=== PATIENT | female | born 1955 | race Caucasian/White ===

== ENCOUNTER 2017-04-23 05:21 | Inpatient (IN) | payer BC ==
[2017-03-24 13:16] VITALS: BMI 42.0
--- NOTE | 2017-03-24 13:43 | PAT Medication Instructions ---
Service Date Mar 24, 2017. Current Home Medication List Acetaminophen (Tylenol), 1,000 MG PO PRN B-Complex Vitamins (Vitamin B Complex), 1 TAB PO QAM Biotin (Biotin 5000), 1 CAP PO QAM Escitalopram Oxalate (Lexapro), 20 MG PO HS Ibuprofen (Advil), 400 MG PO PRN Loratadine (Claritin), 10 MG PO HS Multivitamins/Minerals (Mvi With Minerals), 1 TAB PO QAM Medication Instructions For Your Scheduled Surgery - Check with surgeon for instructions: Ibuprofen (Advil), 400 MG PO PRN - Hold the following medications the morning of surgery: B-Complex Vitamins (Vitamin B Complex), 1 TAB PO QAM Biotin (Biotin 5000), 1 CAP PO QAM Multivitamins/Minerals (Mvi With Minerals), 1 TAB PO QAM - Take the following medications the morning of surgery with a sip of water: Acetaminophen (Tylenol), 1,000 MG PO PRN (if needed) - Take the following medications as scheduled the night before surgery: Escitalopram Oxalate (Lexapro), 20 MG PO HS Loratadine (Claritin), 10 MG PO HS Acetaminophen (Tylenol), 1,000 MG PO PRN (if needed) If you have any questions please call us at [phone] or [phone] or [phone]
--- NOTE | 2017-03-24 14:24 | DIAGNOSTIC IMAGING REPORT ---
TWO VIEW CHEST CLINICAL HISTORY: Preoperative examination.. FINDINGS: PA and lateral chest radiographs are compared to study dated 02/15/2016 and correlated with chest CT dated 11/20/2016. The heart is enlarged and there is atherosclerotic calcification of the thoracic aorta. The pulmonary vasculature is noncongested. Chronic interstitial thickening is similar to previous. The lungs and pleural spaces are clear. There is no pneumothorax. The skeletal structures are osteopenic. The bony thorax appears intact. Degenerative change is noted in the thoracic spine. Mild compression deformities are suggested at the thoracolumbar junction. Cholecystectomy clips and suture material are noted in the upper abdomen. IMPRESSION: Cardiomegaly with no active disease in the chest. Electronically signed by: Lul Sams M.D. 03/24/2017 2:23 PM Dictated Date/Time: 03/24/2017 2:22 PM
[2017-03-24 14:50] LABS: BASO % 0.8 %; BASO ABS # 0.04 K/uL (0-0.2); COMPLETE YES; EOS % 9.5 %; HEMATOCRIT 38.8 % (37-47); LYMPH % 27.1 %; LYMPH ABS # 1.34 K/uL (1.2-3.4); MEAN CELL VOLUME 87.8 fL (80-100); MEAN CORPUSCULAR HEMOGLOBIN 26.2 pg (25-34); MEAN CORPUSCULAR HGB CONC 29.9 g/dl (32-36); MEAN PLATELET VOLUME 10.4 fL (7.4-10.4); MONO % 7.7 %; NEUT % 54.9 %; PLATELET COUNT 316 K/uL (130-400); RED BLOOD COUNT 4.42 M/uL (4.2-5.4); WHITE BLOOD COUNT 4.95 K/uL (4.8-10.8)
[2017-03-24 14:52] LABS: URINE APPEARANCE CLEAR (CLEAR); URINE BILIRUBIN NEG (NEG); URINE COLOR YELLOW; URINE NITRITE NEG (NEG); URINE SPECIFIC GRAVITY 1.018 (1.000-1.030); UROBILINOGEN NEG (NEG); ZZUR CULT IF INDIC CLEAN CATCH NO
[2017-03-24 14:57] LABS: BUN/CREATININE RATIO 15.3 (10-20); CALCIUM 9.1 mg/dl (8.5-10.1); CREATININE 0.66 mg/dl (0.60-1.20); POTASSIUM 3.8 mmol/L (3.5-5.1)
[2017-03-24 14:59] LABS: MANUAL MICROSCOPIC REQUIRED? NO; REVIEW REQ? NO
[2017-03-24 15:01] LABS: PARTIAL THROMBOPLASTIN RATIO 1.2; PROTHROMBIN TIME (PATIENT) 10.6 SECONDS (9.0-12.0)
[2017-03-25 06:42] LABS: ESTIMATED AVERAGE GLUCOSE 103 mg/dl; HA1C FLAG Normal (Normal)
--- NOTE | 2017-04-22 18:02 | HISTORY & PHYSICAL EXAMINATION ---
DATE OF ADMISSION: 04/23/2017 CHIEF COMPLAINT: Chronic right knee pain. HISTORY OF PRESENT ILLNESS: This is a 61-year-old female patient of Dr. Rodriguez'hemalatha complaining of chronic right knee pain, longstanding, now progressively getting worse. The patient has been diagnosed with end-stage osteoarthritis per clinical and radiographic exams. The patient has failed conservative treatment including Tylenol, anti-inflammatories and the use of a cane. She has increased pain with weightbearing activities and her pain does interfere with her activities of daily living. PAST MEDICAL HISTORY: Anxiety, obesity, dental issues. SOCIAL HISTORY: Nonsmoker, nondrinker. PAST SURGICAL HISTORY: She has had left knee surgery, gastric bypass, hernia, gallbladder, tonsillectomy. FAMILY HISTORY: Noncontributory. REVIEW OF SYSTEMS: The patient complains of chronic right knee pain, otherwise denies any shortness of breath, chest pain, nausea, vomiting or any other joint complaints. MEDICATIONS: Included loratadine 10 mg daily, Lexapro 20 mg daily, biotin 5000 mcg disintegrating tablet daily, vitamin B complex daily. ALLERGIES: No known drug allergies. PHYSICAL EXAMINATION: GENERAL: Well-developed, well-nourished 61-year-old female in no acute distress. She is alert and oriented x3 and pleasant. HEENT: Normocephalic, atraumatic. Extraocular motions are intact. Pupils are equal and reactive to light. HEART: Regular rate and rhythm, no murmurs appreciated. LUNGS: Clear. ABDOMEN: Soft, nontender, bowel sounds present. EXTREMITIES: Right knee reveals medial joint line tenderness with a limited range of motion with effusion. She has crepitation with passive range of motion. She has 5/5 strength. NEUROLOGIC: Neurovascularly, she is intact in her right lower extremity. DIAGNOSES: Right knee end-stage osteoarthritis. She also has a history of anxiety, osteoarthritis, obesity, dental issues. PLAN: The patient was advised of her diagnoses. Indications, risks, benefits, and postop course have all been reviewed. The patient wishes to proceed with a right total knee arthroplasty. Necessary consent forms, preoperative testing and clearances will be obtained.
[2017-04-23] VITALS (9 sets, daily range): BP systolic 108–185; BP diastolic 67–104; PULSE 53–81; TEMP 36.4–36.9; O2SAT 95–98; Ht 157.5 cm; Wt 104.7 kg
[~2017-04-23] VITALS: Ht 157.5 cm; Wt 104.7 kg
[~2017-04-23 05:21] MED LIST: ACET-1256 PO; B-COTAB18 PO; BIOTCAP2 PO; CLR10 PO; ESCI1TAB10 PO; IBUP-1050 PO; MULT-513 PO
[2017-04-23] MEDS ORDERED: ATV/1 PO (05:43)
[2017-04-23] MEDS ORDERED: LACTATED RINGER'S 1000ML 1,000 ML IV SCH (06:00)
[2017-04-23] MEDS ORDERED: ACETAMINOPHEN 500 MG TAB PO SCH (06:00)
[2017-04-23] MEDS ORDERED: GABAPENTIN 300 MG CAP PO SCH (06:00)
[2017-04-23] MEDS ORDERED: DEXAMETHASONE 4 MG TAB PO SCH (06:00)
[2017-04-23] MEDS ORDERED: LACTATED RINGER'S 500 ML IV SCH (06:00)
[2017-04-23] MEDS ORDERED: LACTATED RINGER'S 1000ML IV SCH (06:00)
[2017-04-23] MEDS ORDERED: ROPIVACAINE 5MG/ML 30 ML 150 MG, BUPIVACAINE/EPINEPHR 0.5% MPF 30 ML, KETOROLAC TROMETH... INFIL SCH ×7 (06:00)
[2017-04-23] MEDS ORDERED: FAMOTIDINE 20 MG TAB PO SCH (06:00)
[2017-04-23] MEDS ORDERED: CEFAZOLIN 2000 MG/60 ML D5W 60 ML IV SCH (06:00)
[2017-04-23] MEDS ORDERED: METOCLOPRAMIDE HCL 10 MG TAB PO SCH (06:00)
[2017-04-23] MEDS ORDERED: BUPIVACAINE 0.5 % 5 MG/1 ML PF 10ML VIAL ONE (06:32)
[2017-04-23] MEDS ORDERED: ROPIVACAINE 0.5% 5 MG/ML 30 ML VIAL ONE (06:32)
[2017-04-23] MEDS ORDERED: ORTHO JOINT ANESTHETIC ONE (06:51)
[2017-04-23] MEDS ORDERED: BACITRACIN 50000 UNIT VIAL ONE (06:52)
[2017-04-23] MEDS ORDERED: POVIDONE-IODINE OP SOLN 30 ML BTL ONE (06:52)
[2017-04-23] MEDS ORDERED: MIDAZOLAM HCL 1 MG/ML 2ML VIAL ONE (06:58)
[2017-04-23] MEDS: TRANEXAMIC ACID INJ 1,000 MG in SODIUM CHLORIDE 0.9% 100ML 100 ML IV SCH ×2 (07:10→11:29)
--- NOTE | 2017-04-23 07:24 | History & Physical Bridge Note ---
H&P Re-Evaluation Bridge Note: I have examined the patient, reviewed the History & Physical and in the interval since the performance of the History & Physical I have noted the following changes of clinical significance: No changes noted
[2017-04-23] MEDS ORDERED: PROPOFOL IV EMULSION 10 MG/ML 20 ML VIAL IV ONE ×2 (07:40→07:53)
[2017-04-23] MEDS ORDERED: ATROPINE SULFATE 0.1 MG/ML 5ML SYR IV PRN (08:30)
[2017-04-23] MEDS ORDERED: ONDANSETRON INJ 2 MG/ML 2 ML VIAL IV PRN (08:30)
[2017-04-23] MEDS ORDERED: EpHEDrine SULFATE INJ 50 MG/ML AMP IV PRN (08:30)
[2017-04-23] MEDS ORDERED: PHENYLEPHRINE 100MCG/ML 5ML SYR IV PRN (08:30)
[2017-04-23] MEDS ORDERED: HYDROmorphone INJ 2 MG/ML SYR/VIAL IV PRN (08:30)
[2017-04-23] MEDS ORDERED: DiphenhydrAMINE HCL 50 MG/ML VIAL IV PRN (09:45)
[2017-04-23] MEDS ORDERED: ZOLPIDEM TARTRATE 5 MG TAB PO PRN (09:45)
[2017-04-23] MEDS ORDERED: MoRPHine SULFATE 4 MG/ML 1 ML CARP\\VIAL IV PRN (09:45)
[2017-04-23] MEDS ORDERED: MAGNESIUM HYDROXIDE SUSP 30 ML UDC PO PRN (09:45)
--- NOTE | 2017-04-23 10:11 | [facility] Post Operative Brief Note ---
Immediate Operative Summary Operative Date Apr 23, 2017. Pre-Operative Diagnosis Right knee end-stage osteoarthritis Post-Operative Diagnosis Same as preoperative diagnosis Procedure(s) Performed Right Total Knee Arthroplasty Surgeon Dr. José Miguel Rodriguez Health Information Internship Surgeon(s) Estefany Marcial PA-C Estimated Blood Loss 10 mL Findings severe djd tricompartmental grade 4 medial varus Specimens Permanent specimens A: Right knee bone and tissue Drains 2 hemovac Anesthesia spinal regional and orthomix Complication(s) None Disposition Recovery Room / PACU
--- NOTE | 2017-04-23 10:19 | OPERATIVE REPORT ---
DATE OF OPERATION: 04/23/2017 INDICATION FOR PROCEDURE: The patient is a 61-year-old female with chronic progressive pain in her right knee. She has severe osteoarthritis in her knee. She had successful left knee replacement in the past. She is obese. Her BMI is 42.2. Despite all conservative management, she has failed conservative management with regard to treatment of her arthritic knee. Her exam demonstrates she has obese knee and she has morbid obesity up in her thigh area. She has range of motion of a 15 degree flexion contracture and flexion only to about 70 degrees. Radiographs demonstrate tricompartmental DJD, [id number] in the medial compartment, varus knee. PREOPERATIVE DIAGNOSES: End-stage osteoarthritis, right knee and morbid obesity, body mass index of 42.2. POSTOPERATIVE DIAGNOSES: Same. PROCEDURES: Right total knee arthroplasty, increased level of difficulty due to morbid obesity, application of a superficial wound VAC. SURGEON: José Miguel Rodriguez MD STUNNER ANIMAL: ERIK Jones ANESTHESIA: Spinal, adductor nerve block and Orthomix. OPERATIVE PROCEDURE: The patient taken to the operating room, anesthetized under anesthesia as dictated. She was placed supine on the operating room table. I placed a sandbag under her right hip to help keep her right leg rotated in neutral. Knee exam demonstrated -15 degrees to 70 degrees range of motion, no instability, and a very stiff knee. She had an obese leg. A pneumatic tourniquet was placed about her right upper obese thigh. Her right lower extremity was prepped and draped with ChloraPrep. Leg was elevated, exsanguinated with Esmarch bandage. Pneumatic tourniquet was raised to 350 mmHg. Anterior incision made across the right knee. A slightly larger than typical incision was made due to the obesity. Skin was incised sharply. Subcutaneous fat was divided down to the fascia. Multiple bleeders were cauterized as she had more fat than typical. The incision was made through the medial retinaculum and extended up into the mid third of the quadriceps tendon and extended down to the medial tibial tubercle. Intraarticular findings demonstrated tricompartmental DJD, [id number] with some bone loss in the medial compartment, mainly on the flexion surface of the medial femoral condyle. She had tricompartmental osteophytes, tricompartmental disease. I used the Qustodian total knee arthroplasty system using a triathlon posterior stabilized knee system. To expose the knee, the scarred infrapatellar fat pad was resected. The meniscal remnants and the cruciate ligaments were resected. Osteophytes resected. The fat pad over the anterior femur for placement of the component in that area was resected. The lateral synovial bands were released. The femur was exposed. An intramedullary drill hole was made into the femoral canal. The guide yandy was placed and the distal femoral cut was made dissecting 10 mm of distal femur at a 5 degree valgus cut. Then the knee was extended and we exposed the patella. Patella had large osteophytes around the patella. A subperiosteal peel lateral release was performed around the patella. The patella width was measured and width was reproduced using a freehand cut technique and a 33 x 9 mm domed type patellar component. Three drill holes were made and the excess lateral facet was beveled off and all osteophytes removed. The femur was then re-exposed and we were able to put the sizing guide in place. The femur was sized for a 4 femur. We drilled the holes in 3 degrees of external rotation to match the epicondylar axis satisfactorily. The 4-in-1 cutting block was placed. The anterior, posterior and chamfer cuts were made. Then the tibia was subluxed and the external tibial cutting guide was used to make a perpendicular cut to the long axis of the tibia. The cut was made below the most efficient medial side. The lamina housekeeper manager was used to assess ligamentous balance and we had to do a release posteromedially around the knee. Then we exposed the tibia which was sized for a 4 primary base plate which was actually cut. The trial was externally rotated in line with the tibial tubercle and this was pinned in position. The punch for the stem was used and then the notch cutting device was placed and the notch cut was made for the femur and then the 4 femoral trial was inserted and then we assessed ligamentous balance again and the MCL was still too tight, so we did a pie crust the MCL with an 11 blade to balance the ligaments. Now with ligament fully balanced, a 16 poly insert gave balanced ligaments through full range of motion and the patella tracked centrally. At this time, the trials were removed. The Orthomix anesthetic cocktail was injected per protocol. Then the knee was copiously irrigated with pulsatile lavage antibiotic solution with bacitracin. We did attempt bone graft the femoral drill hole, placed bone wax in the intercondylar region for hemostasis. We then cemented the components with Simplex G cement. The final components were the triathlon right posterior stabilized size 4 femur, the triathlon 4 primary tibial baseplate, the triathlon size 4 x 16 posterior stabilized X3 poly insert and then the triathlon F33 x 9 mm X3 poly patella. After the components were placed, all excess cement was removed. The knee was kept in full extension while cement cured. The knee was soaked with Betadine soak per protocol during this part of the procedure. Then this was copiously irrigated out of the knee. When the cement cured, the 2 drains were brought out laterally and connected to a Hemovac. Then the quadriceps tendon and medial retinaculum were closed with interrupted [id number] #1 Vicryl sutures. The knee was taken through range of motion. She had 0 through 120 degrees range of motion without tension on the repair. Repair was secured. The subcutaneous tissues were closed in layers with Vicryl sutures and the skin was closed with charley and a superficial wound VAC was placed. ERIK Jones was my welder first class and she functioned as first cook for the entire procedure. She assisted in patient positioning, prepping, draping, soft tissue retraction, and instrument management during the replacement and she did perform the fascial, subcutaneous and skin closure and placed another wound VAC. She will participate in the postoperative care of the patient. I attest to the content of the Intraoperative Record and any orders documented therein. Any exception s are noted below.
--- NOTE | 2017-04-23 10:26 | DIAGNOSTIC IMAGING REPORT ---
RIGHT KNEE 1 OR 2 VIEWS ROUTINE CLINICAL HISTORY: Postoperative evaluation. COMPARISON: None FINDINGS: Alignment of the total right knee arthroplasty is anatomic. There is no fracture or unexpected radiopaque foreign body. Drains and skin charley are present. IMPRESSION: Expected findings following total right knee arthroplasty. Electronically signed by: Sandro Diez M.D. 04/23/2017 10:25 AM Dictated Date/Time: 04/23/2017 10:24 AM
--- NOTE | 2017-04-23 11:27 | Anesthesiology Progress Note ---
Anesthesia Post Op Note Date & Time Apr 23, 2017 at 11:27 Vital Signs Pain Intensity: 0.0 Vital Signs Past 12 Hours Date Time Temp Pulse Resp B/P (MAP) Pulse Ox O2 Delivery O2 Flow Rate FiO2 04/23/17 10:45 Nasal Cannula 2.0 04/23/17 10:45 36.5 63 16 169/84 (112) 98 Nasal Cannula 2.0 04/23/17 10:45 98 Nasal Cannula 2.0 04/23/17 10:30 54 14 147/83 99 Nasal Cannula 2 04/23/17 10:25 36.3 57 16 140/82 99 Nasal Cannula 2 04/23/17 10:15 56 14 154/94 98 Nasal Cannula 2 04/23/17 10:05 55 13 158/90 100 Nasal Cannula 2 04/23/17 09:57 56 12 158/96 100 Nasal Cannula 2 04/23/17 09:55 54 13 182/102 100 Nasal Cannula 2 04/23/17 09:48 36.2 64 16 169/97 99 Nasal Cannula 2 04/23/17 05:49 36.7 53 20 185/103 95 Room Air Notes Mental Status: alert / awake / arousable, participated in evaluation Pt Amnestic to Procedure: Yes Nausea / Vomiting: adequately controlled Pain: adequately controlled Airway Patency, RR, SpO2: stable & adequate BP & HR: stable & adequate Hydration State: stable & adequate Anesthetic Complications: no major complications apparent
[2017-04-23] MEDS: LORAZEPAM 1 MG TAB PO SCH ×3 (12:00→23:55)
[2017-04-23] MEDS: D5W AND 1/2NSS + 20MEQ KCL 1,000 ML IV SCH ×2 (12:13→21:49)
[2017-04-23] MEDS: FERROUS GLUCONATE 324 MG TAB PO SCH ×2 (12:53→18:08)
[2017-04-23] MEDS: OXYCODONE HCL IR 5 MG TAB (IMMEDIATE RELEASE) PO PRN ×3 (12:56→23:55)
[2017-04-23] MEDS: ACETAMINOPHEN 500 MG TAB PO SCH ×2 (13:47→21:48)
--- NOTE | 2017-04-23 14:55 | History and Physical ---
History & Physical Date of Service Apr 23, 2017. History & Physical consult done, [id number]
--- NOTE | 2017-04-23 15:14 | CONSULTATION REPORT ---
DATE OF CONSULTATION: 04/23/2017 DATE OF CONSULTATION: 04/23/2017 This is a level 2 consultation H&P, 25 minutes. PHYSICIAN REQUESTING CONSULTATION: Dr. Rodriguez. REASON FOR CONSULTATION: Medical management if right TKA. HISTORY OF PRESENT ILLNESS: The patient is a 61-year-old white female who was admitted to Dr. Rodriguez's service because of chronic right knee pain which has been longstanding, progressively getting worse. The patient has had right total knee arthroplasty today by Dr. Rodriguez because diagnosis of end-stage osteoarthritis. The patient is postop. Reported has some pain 3/10 in the right knee. Had lunch, no other complaints. Denied fever, chills, denied cough, sputum, denied chest pain, palpitation, lower extremity swelling. Denied nausea, vomiting, abdominal pain, diarrhea, or constipation. Denied dysuria, urgency, or frequencies. Denied facial droop, slurry speeches or local weakness. PAST MEDICAL HISTORY: Include anxiety, obesity, dental issues. SOCIAL HISTORY: Never smoked. Denied alcohol abuse disorder, denied illicit drug abuse. PAST SURGICAL HISTORY: Include left knee surgeries, gastric bypass, hernia repairing, gallbladder, and tonsillectomy. FAMILY HISTORY: Noncontributory. REVIEW OF SYSTEMS: Please see HPI, otherwise 14-point organ system review were negative. MEDICATIONS: Taking at home which include loratadine 10 mg p.o. q. daily, Lexapro 20 mg p.o. daily, biotin 5000 mcg 1 tab p.o. daily, vitamin B 1 tab p.o. daily. ALLERGIES: No known drug allergies. PHYSICAL EXAMINATION: GENERAL: The patient is a white female, awake, alert and orientated, conversational, obesity. HEAD: Normocephalic. EYES: Pupils equal, round responds to light. EARS: Ear was normal. NOSE: Normal. NECK: Supple. Thyroid no enlargement. Trachea midline. HEART: Regular rhythm. S1, S2. LUNGS: Decreased breathing sounds. There was no wheezing, rhonchi or crackle. ABDOMEN: Soft, nontender. Bowel sound was positive. Bilateral CVA was nontender. GENITOURINARY AND RECTAL: Deferred. BILATERAL LOWER EXTREMITIES: No swelling. Homans sign was negative. Right knee local incisions dressed. LABORATORY STUDIES: Include WBC 4.9, hemoglobin 11, platelet 316. PT/INR was 10/1. Sodium 142, potassium 3.8, chloride 106. BUN 10, creatinine 0.6. Random blood glucose 104. HbA1c 5.2. UA was negative. Chest x-ray has no acute disease. ASSESSMENT AND PLAN: A 61-year-old white female with the conditions below: 1. Right knee chronic arthritis status post right knee total knee arthroplasty. This will be managed by the primary team. Other conditions such as pain control, DVT prophylaxis, PT, OT. Discharge plan will be per primary team. 2. Conditions of anxiety. We will continue current medications Lexapro. 3. Possible gastroesophageal reflux disease. Will continue Pepcid. Discussed with patient and family about the conditions and care plan. I answered all their questions. THE PATIENT IS FULL CODE. Thank you for the chance to involve in the care with the patient. We will continue to follow up. CARLO
[2017-04-23] MEDS: CEFAZOLIN IV 2,000 MG in DEXTROSE 5% 50ML 50 ML IV SCH ×2 (15:55→23:55)
[2017-04-23] MEDS: LORATADINE 10 MG TAB PO SCH (21:48)
[2017-04-23] MEDS: ESCITALOPRAM OXALATE 20 MG TAB PO SCH (21:49)
[2017-04-23] MEDS: DOCUSATE SODIUM 100 MG CAP PO SCH (21:49)
[2017-04-23] MEDS: OXYCODONE HCL 10 MG TABCR (OXYCONTIN) PO SCH (21:49)
[2017-04-24 03:41] VITALS: BP 114/73; PULSE 63; TEMP 36.9; O2SAT 94
[2017-04-24] MEDS: OXYCODONE HCL IR 5 MG TAB (IMMEDIATE RELEASE) PO PRN ×4 (04:42→19:45)
[2017-04-24] MEDS: LORAZEPAM 1 MG TAB PO SCH ×4 (05:32→22:53)
[2017-04-24] MEDS: ACETAMINOPHEN 500 MG TAB PO SCH ×3 (05:33→22:07)
[2017-04-24 06:21] LABS: HEMATOCRIT 30.6 % (37-47); MEAN CELL VOLUME 88.4 fL (80-100); MEAN CORPUSCULAR HGB CONC 29.4 g/dl (32-36); MEAN PLATELET VOLUME 9.8 fL (7.4-10.4); PLATELET COUNT 296 K/uL (130-400); RED BLOOD COUNT 3.46 M/uL (4.2-5.4); WHITE BLOOD COUNT 11.39 K/uL (4.8-10.8)
[2017-04-24 06:29] LABS: PROTHROMBIN TIME (PATIENT) 10.6 SECONDS (9.0-12.0)
[2017-04-24 07:04] LABS: BUN/CREATININE RATIO 14.4 (10-20); CALCIUM 8.3 mg/dl (8.5-10.1); CREATININE 0.73 mg/dl (0.60-1.20)
[2017-04-24 07:31] VITALS: BP 108/71; PULSE 55; TEMP 36.7; O2SAT 95
[2017-04-24] MEDS: D5W AND 1/2NSS + 20MEQ KCL 1,000 ML IV SCH (08:00)
[2017-04-24] MEDS: DOCUSATE SODIUM 100 MG CAP PO SCH ×2 (08:43→20:33)
[2017-04-24] MEDS: FERROUS GLUCONATE 324 MG TAB PO SCH ×3 (08:43→19:44)
[2017-04-24] MEDS: MULTIVITAMIN TAB PO SCH (08:43)
[2017-04-24] MEDS: PANTOprazole SOD 40 MG TAB PO SCH (08:44)
[2017-04-24] MEDS: RIVAROXABAN 10 MG TAB PO SCH (08:44)
[2017-04-24] MEDS: OXYCODONE HCL 10 MG TABCR (OXYCONTIN) PO SCH ×2 (08:44→20:33)
--- NOTE | 2017-04-24 08:48 | Orthopedic Progress Note ---
Orthopedic Progress Note Date of Service Apr 24, 2017. Subjective Post OP Day: 1 Reports: feeling well, pain controlled w PO medications, Denies: complaints, chest pain, SOB, nausea / vomiting, light headedness, calf pain Objective calves soft nontender, N/V intact, capillary refill less than 2 sec., dressing C /D/I, A&O x3, toes mobile Date Time Temp Pulse Resp B/P (MAP) Pulse Ox O2 Delivery O2 Flow Rate FiO2 04/24/17 07:31 36.7 55 17 108/71 (83) 95 Room Air 04/24/17 03:41 36.9 63 16 114/73 (87) 94 Room Air 04/23/17 23:45 Room Air 04/23/17 23:24 36.9 53 16 108/71 (83) 95 Room Air 04/23/17 18:43 36.7 81 18 119/73 (88) 95 Room Air 04/23/17 15:35 Nasal Cannula 04/23/17 15:04 36.4 58 16 112/67 (82) 96 Nasal Cannula 2.0 04/23/17 13:45 36.8 71 18 135/84 (101) 98 Nasal Cannula 2.0 04/23/17 12:57 36.6 62 16 138/90 (106) 97 Nasal Cannula 2.0 04/23/17 11:46 64 16 138/86 (103) 96 Nasal Cannula 2.0 04/23/17 11:15 36.5 55 16 145/85 (105) 97 Nasal Cannula 2.0 04/23/17 10:45 Nasal Cannula 2.0 04/23/17 10:45 36.5 63 16 169/84 (112) 98 Nasal Cannula 2.0 04/23/17 10:45 98 Nasal Cannula 2.0 04/23/17 10:30 54 14 147/83 99 Nasal Cannula 2 04/23/17 10:25 36.3 57 16 140/82 99 Nasal Cannula 2 04/23/17 10:15 56 14 154/94 98 Nasal Cannula 2 04/23/17 10:05 55 13 158/90 100 Nasal Cannula 2 04/23/17 09:57 56 12 158/96 100 Nasal Cannula 2 04/23/17 09:55 54 13 182/102 100 Nasal Cannula 2 04/23/17 09:48 36.2 64 16 169/97 99 Nasal Cannula 2 Laboratory Results 24 Hours: Test 04/24/17 06:09 Hematocrit 30.6 % Hemoglobin 9.0 g/dL Prothromb Time International Ratio 1.0 Prothrombin Time 10.6 SECONDS Assessment & Plan Assessment: POD #1, Right TKA Plan: PT/ OPT DVT proph- Xarelto D/C planning- Rehab vs. HH likely Thursday As per medicine. Inhouse Planning Pain Management: Oxycontin, Morphine, PO Tylenol, Oxy IR DVT Prophylaxis: TEDs, SCDs, Xarelto Discharge Planning Discharge Planning: uncertain Pain Management: Oxycontin, PO Tylenol, Oxy IR DVT Prophylaxis: TEDs, Xarelto Therapy: Physical Therapy, Occupational Therapy
[2017-04-24 10:00] VITALS: BP 135/67
--- NOTE | 2017-04-24 10:17 | Hospitalist Progress Note ---
Hospitalist Progress Note Date of Service Apr 24, 2017. (Alisa Pena ., PA-C) Subjective Pt evaluation today including: conversation w/ patient, physical exam, lab review, review of studies, review of inpatient medication list Voiding: no voiding problems Patient states she is feeling well. Had an episode of lightheadedness/dizziness with changing positions this AM. BP dropped. Per patient/past records, similar presentation happened in 03/2016 when she had her L knee done. Took about 5 days to resolved. Limited pain medications. Discussed limiting pain medications with patient- agreeable. Encouraged pushing fluids. Change positions slowly. H&H stable. R knee pain is well controlled at this time. +flatus postop, no BMs. Eating and drinking OK. Patient denies any fever, chills, sweats, vision changes, CP, palpitations, edema, SOB, wheezing, cough, abdominal pain, nausea, vomiting, diarrhea, urinary symptoms, melena, numbness/tingling, weakness, anxiety/depression, active bleeding, or new skin discoloration/changes. (Alisa Pena ., PA-C) Medications Current Inpatient Medications Medications (Trade) Dose Ordered Sig/Jero Route Start Time Stop Time Status Last Admin Dose Admin Oxycodone HCl (Roxicodone Immediate Rel Tab) 1 TABLET FOR PAIN RATING... Q4H PRN PO 04/23/17 09:45 05/07/17 09:44 04/24/17 08:45 10 MG Oxycodone HCl (Oxycontin Tab) 10 mg Q12 PO 04/23/17 21:00 05/07/17 20:59 04/24/17 08:44 10 MG Morphine Sulfate (MoRPHine SULFATE INJ) 4 mg 4XDQ4H PRN IV 04/23/17 09:45 05/07/17 09:44 Acetaminophen (Tylenol Tab) 1,000 mg Q8 PO 04/23/17 14:00 05/23/17 13:59 04/24/17 05:33 1,000 MG Magnesium Hydroxide (Milk Of Magnesia Susp) 30 ml Q6H PRN PO 04/23/17 09:45 05/23/17 09:44 Docusate Sodium (coLACE CAP) 100 mg BID PO 04/23/17 21:00 05/23/17 20:59 04/24/17 08:43 100 MG Diphenhydramine HCl (Benadryl Cap) 25 mg Q8H PRN PO 04/23/17 09:45 05/23/17 09:44 Diphenhydramine HCl (Benadryl Inj) 25 mg Q8H PRN IV 04/23/17 09:45 05/23/17 09:44 Zolpidem Tartrate (Ambien Tab) 5 mg HSZ PRN PO 04/23/17 09:45 05/23/17 09:44 Multivitamins (Multivitamin Tab) 1 tab QAM PO 04/24/17 09:00 05/24/17 08:59 04/24/17 08:43 1 TAB Ondansetron HCl (Zofran Inj) 4 mg Q6H PRN IV 04/23/17 09:45 05/23/17 09:44 Ferrous Gluconate (Ferrous Gluconate Tab) 324 mg TIDM PO 04/23/17 12:30 05/23/17 12:29 04/24/17 08:43 324 MG Pantoprazole Sodium (Protonix Tab) 40 mg QAM PO 04/24/17 09:00 05/24/17 08:59 Rivaroxaban (Xarelto Tab) 10 mg Q24H PO 04/24/17 09:00 05/24/17 08:59 04/24/17 08:44 10 MG Escitalopram Oxalate (Lexapro Tab) 20 mg HS PO 04/23/17 21:00 05/23/17 20:59 04/23/17 21:49 20 MG Loratadine (Claritin Tab) 10 mg HS PO 04/23/17 21:00 05/23/17 20:59 04/23/17 21:48 10 MG Lorazepam (Ativan Tab) 1 mg Q6 PO 04/23/17 12:00 05/23/17 11:59 (Alisa Pena, LISA) Objective Vital Signs Date Time Temp Pulse Resp B/P (MAP) Pulse Ox O2 Delivery O2 Flow Rate FiO2 04/24/17 07:31 36.7 55 17 108/71 (83) 95 Room Air 04/24/17 03:41 36.9 63 16 114/73 (87) 94 Room Air 04/23/17 23:45 Room Air 04/23/17 23:24 36.9 53 16 108/71 (83) 95 Room Air 04/23/17 18:43 36.7 81 18 119/73 (88) 95 Room Air 04/23/17 15:35 Nasal Cannula 04/23/17 15:04 36.4 58 16 112/67 (82) 96 Nasal Cannula 2.0 04/23/17 13:45 36.8 71 18 135/84 (101) 98 Nasal Cannula 2.0 04/23/17 12:57 36.6 62 16 138/90 (106) 97 Nasal Cannula 2.0 04/23/17 11:46 64 16 138/86 (103) 96 Nasal Cannula 2.0 04/23/17 11:15 36.5 55 16 145/85 (105) 97 Nasal Cannula 2.0 04/23/17 10:45 Nasal Cannula 2.0 04/23/17 10:45 36.5 63 16 169/84 (112) 98 Nasal Cannula 2.0 04/23/17 10:45 98 Nasal Cannula 2.0 04/23/17 10:30 54 14 147/83 99 Nasal Cannula 2 04/23/17 10:25 36.3 57 16 140/82 99 Nasal Cannula 2 04/23/17 10:15 56 14 154/94 98 Nasal Cannula 2 04/23/17 10:05 55 13 158/90 100 Nasal Cannula 2 04/23/17 09:57 56 12 158/96 100 Nasal Cannula 2 04/23/17 09:55 54 13 182/102 100 Nasal Cannula 2 04/23/17 09:48 36.2 64 16 169/97 99 Nasal Cannula 2 (Alisa Pena ., PA-C) Physical Exam General Appearance: no apparent distress, + obese Eyes: PERRL ENT: hearing grossly normal Neck: supple Respiratory/Chest: lungs clear, no respiratory distress, no accessory muscle use Cardiovascular: regular rate, rhythm Abdomen: normal bowel sounds, non tender, soft Extremities: no pedal edema, no calf tenderness, + pertinent finding (SCDs on; R knee brace) Neurologic/Psychiatric: alert, normal mood/affect, oriented x 3, + pertinent finding (drowsy ) Skin: normal color, warm/dry, no rash (Alisa Pena, PA-C) Laboratory Results Last 24 Hours Test 04/24/17 06:09 White Blood Count 11.39 K/uL Red Blood Count 3.46 M/uL Hemoglobin 9.0 g/dL Hematocrit 30.6 % Mean Corpuscular Volume 88.4 fL Mean Corpuscular Hemoglobin 26.0 pg Mean Corpuscular Hemoglobin Concent 29.4 g/dl RDW Standard Deviation 43.5 fL RDW Coefficient of Variation 13.7 % Platelet Count 296 K/uL Mean Platelet Volume 9.8 fL Prothrombin Time 10.6 SECONDS Prothromb Time International Ratio 1.0 Sodium Level 138 mmol/L Potassium Level 4.0 mmol/L Chloride Level 106 mmol/L Carbon Dioxide Level 25 mmol/L Anion Gap 7.0 mmol/L Blood Urea Nitrogen 10 mg/dl Creatinine 0.73 mg/dl Est Creatinine Clear Calc Drug Dose 91.9 ml/min Estimated GFR () 103.0 Estimated GFR (Non- 88.9 BUN/Creatinine Ratio 14.4 Random Glucose 133 mg/dl Calcium Level 8.3 mg/dl (Alisa Pena ., PA-C) Assessment and Plan 61 y/o female, with PMHx of anxiety, obesity, and GERD, s/p R hip replacement. s/p R TKA by Dr. Rodriguez on 04/23: - Pain management, PT/OT, and DVT prophylaxis as per primary team - Postop CBC and PRP reviewed- STABLE - Follow H&H- Iron supplement 325 mg TID Orthostatic hypotension, likely secondary to postop losses: - Limit pain medications - Encouraged good oral intake - Follow H&H and BPs - Change positions slowly Anxiety: Lexapro 20 mg daily GI prophylaxis: Protonix DVT prophylaxis: Xarelto x35 days Code Status: LEVEL I, FULL Dispo: As per primary team Thank you for this consultation. We will continue to follow throughout hospital stay. (Alisa Pena ., PA-C) I reviewed above note and examined patient. Physical Exam: General Appearance: no apparent distress, + obese Neck: supple, no JVD, trachea midline Respiratory/Chest: lungs clear, normal breath sounds, no respiratory distress, no accessory muscle use Cardiovascular: regular rate, rhythm, no gallop, no murmur Abdomen / GI: normal bowel sounds, non tender, soft Extremities: no calf tenderness, no pedal edema Neurologic/Psychiatric: drowsy, no focal findings Skin: normal color, warm/dry I agree with the above note done by APC. Case was discussed with APC and patient. (Umang Amato M.D.)
--- NOTE | 2017-04-24 13:40 | Anesthesiology Progress Note ---
Anesthesia Post Op Note Date & Time Apr 24, 2017 at 13:39 Vital Signs Pain Intensity: 4.0 Vital Signs Past 12 Hours Date Time Temp Pulse Resp B/P (MAP) Pulse Ox O2 Delivery O2 Flow Rate FiO2 04/24/17 07:31 36.7 55 17 108/71 (83) 95 Room Air 04/24/17 03:41 36.9 63 16 114/73 (87) 94 Room Air Notes Mental Status: alert / awake / arousable, participated in evaluation Pt Amnestic to Procedure: Yes Nausea / Vomiting: adequately controlled Pain: adequately controlled Airway Patency, RR, SpO2: stable & adequate BP & HR: stable & adequate Hydration State: stable & adequate Neuraxial Anesthesia: was administered, sensory block resolved Anesthetic Complications: no major complications apparent
[2017-04-24 15:31] VITALS: BP 118/72; PULSE 55; TEMP 36.5; O2SAT 98
[2017-04-24] MEDS: LORATADINE 10 MG TAB PO SCH (20:33)
[2017-04-24] MEDS: ESCITALOPRAM OXALATE 20 MG TAB PO SCH (20:33)
[2017-04-24 23:55] VITALS: BP 127/76; PULSE 64; TEMP 36.6; O2SAT 97
[2017-04-25] VITALS (8 sets, daily range): BP systolic 104–149; BP diastolic 64–88; PULSE 61–81; TEMP 36.7–36.8; O2SAT 97–100
[2017-04-25] MEDS: OXYCODONE HCL IR 5 MG TAB (IMMEDIATE RELEASE) PO PRN ×3 (00:35→09:22)
[2017-04-25] MEDS: LORAZEPAM 1 MG TAB PO SCH (06:00)
[2017-04-25] MEDS: ACETAMINOPHEN 500 MG TAB PO SCH ×3 (06:09→22:33)
[2017-04-25 06:16] LABS: HEMATOCRIT 27.5 % (37-47); MEAN CELL VOLUME 87.9 fL (80-100); MEAN CORPUSCULAR HEMOGLOBIN 27.5 pg (25-34); MEAN CORPUSCULAR HGB CONC 31.3 g/dl (32-36); MEAN PLATELET VOLUME 9.4 fL (7.4-10.4); PLATELET COUNT 220 K/uL (130-400); RED BLOOD COUNT 3.13 M/uL (4.2-5.4); WHITE BLOOD COUNT 6.12 K/uL (4.8-10.8)
--- NOTE | 2017-04-25 08:59 | Orthopedic Progress Note ---
Orthopedic Progress Note Date of Service Apr 25, 2017. Subjective Post OP Day: 2 Reports: feeling well, complaints (Main complaint is feeling lightheaded when standing up. Difficulty with PT yesterday because she would feel like she is going to pass out with any ambulation or being upright. She states she had a very similar problem with her post operative period last year with the opposite knee.), light headedness, pain controlled w PO medications, Denies: chest pain, SOB, nausea / vomiting, calf pain Objective calves soft nontender, N/V intact, capillary refill less than 2 sec., dressing C /D/I (Prevena in place and functioning well.), A&O x3, toes mobile Date Time Temp Pulse Resp B/P (MAP) Pulse Ox O2 Delivery O2 Flow Rate FiO2 04/25/17 07:59 36.8 63 18 130/80 (97) 100 Nasal Cannula 2.0 04/25/17 04:10 117/66 (83) 04/24/17 23:55 36.6 64 16 127/76 (93) 97 Room Air 04/24/17 19:55 Room Air 04/24/17 15:31 36.5 55 18 118/72 (87) 98 Room Air Laboratory Results 24 Hours: Test 04/25/17 05:55 Hematocrit 27.5 % Hemoglobin 8.6 g/dL Assessment & Plan Assessment: POD #2, Right TKA Plan: PT/ OPT DVT proph- Xarelto D/C planning- Rehab vs. HH. Thursday, 04.26.17, may be the earliest day. Monitor orthostatic hypotension. As per medicine. Inhouse Planning Pain Management: Oxycontin, Morphine, PO Tylenol, Oxy IR DVT Prophylaxis: TEDs, SCDs, Xarelto Discharge Planning Discharge Planning: uncertain Pain Management: Oxycontin, PO Tylenol, Oxy IR DVT Prophylaxis: TEDs, Xarelto Therapy: Physical Therapy, Occupational Therapy
[2017-04-25] MEDS: FERROUS GLUCONATE 324 MG TAB PO SCH ×3 (09:16→18:02)
[2017-04-25] MEDS: MULTIVITAMIN TAB PO SCH (09:17)
[2017-04-25] MEDS: RIVAROXABAN 10 MG TAB PO SCH (09:17)
[2017-04-25] MEDS: PANTOprazole SOD 40 MG TAB PO SCH (09:17)
[2017-04-25] MEDS: OXYCODONE HCL 10 MG TABCR (OXYCONTIN) PO SCH ×2 (09:17→20:57)
[2017-04-25] MEDS: DOCUSATE SODIUM 100 MG CAP PO SCH ×2 (09:17→20:56)
[2017-04-25] MEDS ORDERED: LORAZEPAM 0.5 MG TAB PO PRN (12:00)
[2017-04-25] MEDS: TRAMADOL HCL 50 MG TAB PO PRN ×3 (12:58→22:33)
--- NOTE | 2017-04-25 15:07 | Hospitalist Progress Note ---
Hospitalist Progress Note Date of Service Apr 25, 2017. (Ning Degroot PA-C) Subjective Pt evaluation today including: conversation w/ patient, physical exam, chart review, lab review, review of studies, review of inpatient medication list Patient seen and evaluated. Continues to have lightheaded/dizzy spells. Reporting anxiety as well. Likely component of vasovagal given anxiety and pain. Appears euvolemic and maintaining good oral intake. Expresses anxiety with ambulating but also having anxiety because she doesn't feel that she is doing enough. Reassurance given that recovery is individualized. Reports having medication in the past to help increase her BP but resulted in BP readings in 200s systolically. States she had Tramadol on previous knee and tolerated well with less drug effect. Constitutional: + problem reported (lightheadedness/dizziness), No fever, No chills Eyes: No worsening of vision Respiratory: No shortness of breath Cardiovascular: No chest pain, No palpitations Abdomen: + nausea (with dizziness), No pain, No vomiting, No diarrhea, No constipation Musculoskeletal: + joint pain (R knee pain), No calf pain Female : No dysuria Heme: No abnormal bleeding/bruising (Ning Degroot PA-C) Medications Current Inpatient Medications Medications (Trade) Dose Ordered Sig/Jero Route Start Time Stop Time Status Last Admin Dose Admin Oxycodone HCl (Roxicodone Immediate Rel Tab) 1 TABLET FOR PAIN RATING... Q4H PRN PO 04/23/17 09:45 05/07/17 09:44 04/25/17 09:22 5 MG Oxycodone HCl (Oxycontin Tab) 10 mg Q12 PO 04/23/17 21:00 05/07/17 20:59 04/25/17 09:17 10 MG Morphine Sulfate (MoRPHine SULFATE INJ) 4 mg 4XDQ4H PRN IV 04/23/17 09:45 05/07/17 09:44 Acetaminophen (Tylenol Tab) 1,000 mg Q8 PO 04/23/17 14:00 05/23/17 13:59 04/25/17 14:14 1,000 MG Magnesium Hydroxide (Milk Of Magnesia Susp) 30 ml Q6H PRN PO 04/23/17 09:45 05/23/17 09:44 Docusate Sodium (coLACE CAP) 100 mg BID PO 04/23/17 21:00 05/23/17 20:59 04/25/17 09:17 100 MG Diphenhydramine HCl (Benadryl Cap) 25 mg Q8H PRN PO 04/23/17 09:45 05/23/17 09:44 Diphenhydramine HCl (Benadryl Inj) 25 mg Q8H PRN IV 04/23/17 09:45 05/23/17 09:44 Zolpidem Tartrate (Ambien Tab) 5 mg HSZ PRN PO 04/23/17 09:45 05/23/17 09:44 Multivitamins (Multivitamin Tab) 1 tab QAM PO 04/24/17 09:00 05/24/17 08:59 04/25/17 09:17 1 TAB Ondansetron HCl (Zofran Inj) 4 mg Q6H PRN IV 04/23/17 09:45 05/23/17 09:44 Ferrous Gluconate (Ferrous Gluconate Tab) 324 mg TIDM PO 04/23/17 12:30 05/23/17 12:29 04/25/17 09:16 324 MG Pantoprazole Sodium (Protonix Tab) 40 mg QAM PO 04/24/17 09:00 05/24/17 08:59 04/25/17 09:17 40 MG Rivaroxaban (Xarelto Tab) 10 mg Q24H PO 04/24/17 09:00 05/24/17 08:59 04/25/17 09:17 10 MG Escitalopram Oxalate (Lexapro Tab) 20 mg HS PO 04/23/17 21:00 05/23/17 20:59 04/24/17 20:33 20 MG Loratadine (Claritin Tab) 10 mg HS PO 04/23/17 21:00 05/23/17 20:59 04/24/17 20:33 10 MG Tramadol HCl (Ultram Tab) 50 mg Q4H PRN PO 04/25/17 10:30 05/25/17 10:29 04/25/17 12:58 50 MG Lorazepam (Ativan Tab) 0.5 mg Q6H PRN PO 04/25/17 12:00 05/23/17 11:59 (Ning Degroot PA-C) Objective Vital Signs Date Time Temp Pulse Resp B/P (MAP) Pulse Ox O2 Delivery O2 Flow Rate FiO2 04/25/17 12:52 114/73 (87) 04/25/17 08:15 100 Nasal Cannula 2.0 04/25/17 07:59 36.8 63 18 130/80 (97) 100 Nasal Cannula 2.0 04/25/17 04:10 117/66 (83) 04/24/17 23:55 36.6 64 16 127/76 (93) 97 Room Air 04/24/17 19:55 Room Air 04/24/17 15:31 36.5 55 18 118/72 (87) 98 Room Air (Ning Degroot PA-C) Physical Exam General Appearance: WD/WN, no apparent distress, + obese Eyes: sclerae normal ENT: hearing grossly normal Neck: supple, no JVD, trachea midline Respiratory/Chest: lungs clear, normal breath sounds, no respiratory distress, no accessory muscle use Cardiovascular: regular rate, rhythm, no gallop, no murmur Abdomen: normal bowel sounds, non tender, soft Extremities: + pertinent finding (vac placed on R knee - minimal ecchymosis; no drainage or erythema) Neurologic/Psychiatric: alert, oriented x 3 Skin: normal color, warm/dry (Ning Degroot PA-C) Laboratory Results Last 24 Hours Test 04/25/17 05:55 White Blood Count 6.12 K/uL Red Blood Count 3.13 M/uL Hemoglobin 8.6 g/dL Hematocrit 27.5 % Mean Corpuscular Volume 87.9 fL Mean Corpuscular Hemoglobin 27.5 pg Mean Corpuscular Hemoglobin Concent 31.3 g/dl RDW Standard Deviation 45.0 fL RDW Coefficient of Variation 14.1 % Platelet Count 220 K/uL Mean Platelet Volume 9.4 fL (Ning Degroot PA-C) Assessment and Plan 61 y/o female, with PMHx of anxiety, obesity, and GERD, s/p R hip replacement. S/P R TKA by Dr. Rodriguez on 04/23: - Pain management, PT/OT, and DVT Prophylaxis per primary - DVT Prophylaxis - Xarelto Orthostatic Hypotension: Likely Vasovagal - Patient reporting a lot of anxiety and Valsalvas when ambulating - dizziness may also be affected by pain medication - Reports Tramadol helped previously with less dizziness -- Will do a trial of Tramadol but may vagal more if pain isnt controlled - Appears euvolemic and is taking in oral fluids without difficulty - Similar issue with previous knee surgery and took 5 days to resolve -- Given medication to increase BP but stated she ultimately had systolic readings in 200s Anxiety: - Lexapro 20 mg daily - Ativan 0.5 mg PRN - med rec with 1 mg Q6H per patient she was given 5 pills for acute anxiety but only needed one and is not on chronically Disposition: Per Primary Thank you for this consultation. We will continue to follow throughout hospital stay. Continued [facility] stay due to: ambulation difficulties Discharge planning: home with home health (Ning Degroot, PA-C) I agree with above note after discussing case with APC and examining patient. General Appearance: WD/WN, no apparent distress, + obese Eyes: sclerae normal ENT: hearing grossly normal Neck: supple, no JVD, trachea midline Respiratory/Chest: lungs clear, normal breath sounds, no respiratory distress, no accessory muscle use Cardiovascular: regular rate, rhythm, no gallop, no murmur Abdomen: normal bowel sounds, non tender, soft Extremities: + pertinent finding (vac placed on R knee - minimal ecchymosis; no drainage or erythema) Neurologic/Psychiatric: alert, oriented x 3 Skin: normal color, warm/dry My exam did not differ from APC. (Umang Amato M.D.)
[2017-04-25] MEDS: LORATADINE 10 MG TAB PO SCH (20:56)
[2017-04-25] MEDS: ESCITALOPRAM OXALATE 20 MG TAB PO SCH (20:56)
[2017-04-26] MEDS: TRAMADOL HCL 50 MG TAB PO PRN (04:36)
[2017-04-26] MEDS: ACETAMINOPHEN 500 MG TAB PO SCH ×3 (05:39→22:07)
[2017-04-26 06:02] LABS: HEMATOCRIT 28.5 % (37-47); MEAN CELL VOLUME 89.3 fL (80-100); MEAN CORPUSCULAR HEMOGLOBIN 27.3 pg (25-34); MEAN CORPUSCULAR HGB CONC 30.5 g/dl (32-36); MEAN PLATELET VOLUME 9.8 fL (7.4-10.4); PLATELET COUNT 241 K/uL (130-400); RED BLOOD COUNT 3.19 M/uL (4.2-5.4); WHITE BLOOD COUNT 5.68 K/uL (4.8-10.8)
[2017-04-26 08:00] VITALS: BP 135/81; PULSE 72; TEMP 36.9; O2SAT 97
[2017-04-26] MEDS: ONDANSETRON INJ 2 MG/ML 2 ML VIAL IV PRN ×2 (08:09→20:24)
[2017-04-26 08:20] VITALS: O2SAT 97
[2017-04-26] MEDS: FERROUS GLUCONATE 324 MG TAB PO SCH ×3 (08:30→17:45)
[2017-04-26] MEDS: MULTIVITAMIN TAB PO SCH (08:53)
[2017-04-26] MEDS: DOCUSATE SODIUM 100 MG CAP PO SCH ×2 (08:56→22:07)
--- NOTE | 2017-04-26 08:56 | Orthopedic Progress Note ---
Orthopedic Progress Note Date of Service Apr 26, 2017. Subjective Post OP Day: 3 Reports: nausea / vomiting, pain controlled w PO medications, Denies: chest pain , SOB, light headedness, calf pain Objective calves soft nontender, N/V intact, capillary refill less than 2 sec., dressing C /D/I, A&O x3, toes mobile Orthostatics are normal. BP during the visit was normal. Patient now nauseous and getting a dose of Zofran. Date Time Temp Pulse Resp B/P (MAP) Pulse Ox O2 Delivery O2 Flow Rate FiO2 04/26/17 08:00 36.9 72 20 135/81 (99) 97 Room Air 04/25/17 23:50 Room Air 04/25/17 23:20 36.7 68 16 149/88 (108) 97 Room Air 04/25/17 18:05 78 137/82 (100) 04/25/17 18:05 70 136/82 (100) 04/25/17 18:05 81 115/74 (88) 04/25/17 17:00 98 Nasal Cannula 2.0 04/25/17 15:04 61 18 104/64 (77) 98 Nasal Cannula 2.0 04/25/17 12:52 114/73 (87) Laboratory Results 24 Hours: Test 04/26/17 05:34 Hematocrit 28.5 % Hemoglobin 8.7 g/dL Assessment & Plan Assessment: POD #3, Right TKA Plan: PT/ OPT DVT proph- Xarelto D/C planning- Home with home health when nausea resolves. Will check back later today. As per medicine. Inhouse Planning Pain Management: Oxycontin (D/C Oxycontin today.), Morphine, PO Tylenol, Oxy IR (D/C Oxy IR today) DVT Prophylaxis: TEDs, SCDs, Xarelto Discharge Planning Discharge Planning: home with home health Pain Management: Ultram, PO Tylenol DVT Prophylaxis: TEDs, Xarelto Therapy: Physical Therapy, Occupational Therapy
[2017-04-26] MEDS: RIVAROXABAN 10 MG TAB PO SCH (08:57)
[2017-04-26] MEDS: OXYCODONE HCL 10 MG TABCR (OXYCONTIN) PO SCH (08:57)
[2017-04-26] MEDS: PANTOprazole SOD 40 MG TAB PO SCH (08:57)
[2017-04-26] MEDS ORDERED: ULT50X PO (09:00)
[2017-04-26] MEDS ORDERED: HYDROCODONE/ACETAMOPHEN 5/325MG TAB PO PRN (09:00)
[2017-04-26] MEDS ORDERED: ONDA8TAB6 PO (09:00)
[2017-04-26] MEDS ORDERED: ACET-24 PO (09:00)
[2017-04-26] MEDS ORDERED: XRL10 PO (09:00)
--- NOTE | 2017-04-26 09:03 | Discharge Instructions ---
Discharge Instructions Date of Service Apr 26, 2017. Admission Reason for Admission: Right Knee Degenerative Joint Disease Discharge Discharge Diagnosis / Problem: Right knee degenerative joint disease Discharge Goals Goal(s): Decrease discomfort, Improve function, Increase independence Activity Recommendations Activity Limitations: per Instructions/Follow-up section Weightbearing Status: Right weightbearing (as tolerated) . Instructions / Follow-Up Instructions / Follow-Up ACTIVITY RECOMMENDATIONS: SELF CARE INSTRUCTIONS AFTER TOTAL KNEE REPLACEMENT A. You may need to continue a physical therapy program after discharge from the hospital. There are several options available to you. Your doctor will assist you in selecting the best one for you. 1. An out-patient facility 3 times a week for therapy. 2. Home therapy for 1 to 2 weeks with outpatient therapy to follow. 3. Continue working on all exercises taught by physical therapy three times a day for 20 minutes on non-therapy days. Your goals should be to increase the bending of your knee to 90 degrees and beyond and to fully straighten your knee. Ice and elevate knee after exercise. B. Weight as tolerated with a walker or as instructed by your physician. C. It is okay to shower if minimal to no drainage from incision. No Baths. Do not soak wound. D. Make walking a part of your daily routine. Be up as much as comfortable with rest periods throughout the day. Rest with leg elevation is very important. Use the ice wrap frequently for the first 3-4 weeks. E. There are no restrictions on activities. You may ride in a car, shop, participate in hand welt butter and all social activities. F. Wear the long elastic stockings (OLEG hose) 20 hours a day for one month after surgery. They can be removed several times a day for laundering and when showering. G. Prevena- This is a large suction dressing covering your incision. This will help pull any excess drainage from the wound and allow your incision to heal properly. You may shower with this if you can keep the unit outside of the shower. If any bleeding or leakage is noted please call your doctor's office. This will remain on your incision for 7 days and then should be removed. This can be done yourself or by the home nursing staff if applicable. The entire unit is disposable once removed. Once removed, keep incision clean and dry. If redness or drainage is noted, please call your surgeon. SPECIAL CARE INSTRUCTIONS: VERY IMPORTANT TO READ AND REVIEW A. Take Xarelto (blood thinning medications) as directed by your doctor. If on Coumadin, have a pro-time (blood test) drawn according to your doctor's instructions. This will tell the doctor how well the Coumadin is thinning your blood. B. There are a few signs you need to watch for after you are home. Call [facility] if you notice any of the followin. Increased severe knee pain. Some pain is expected especially when you exercise. 2. Increased swelling in your leg or knee; pain or swelling of the calf muscle in either lower leg. 3. Any redness or fluid drainage from the incision. 4. Shortness of breath or chest pain. 5. A Temperature of 101 degrees F or greater. C. Please call [facility] at if you have any concerns or questions about your operation or recovery. The doctor or his nurse will return your call promptly. D. You must take antibiotics before dental work, bladder, bowel or other surgery. Your doctor will provide you with a permanent care to carry describing this precaution. FOLLOW UP VISIT: If appointment is not already scheduled: Please call [facility] to make a follow-up appointment for one month after your surgery at . Current Hospital Diet Patient's current hospital diet: Regular Diet Discharge Diet Recommended Diet: Regular Diet Procedures Procedures Performed: Right Total Knee Arthroplasty Pending Studies Studies pending at discharge: no Laboratory Results Hemoglobin A1c Test 03/24/17 13:50 Range/Units Estimated Average Glucose 103 mg/dl Hemoglobin A1c 5.2 4.5-5.6 % Medical Emergencies . Who to Call and When: Medical Emergencies: If at any time you feel your situation is an emergency, please call 911 immediately. . Non-Emergent Contact Non-Emergency issues call your: Surgeon Call Non-Emergent contact if: temperature is above 101, your pain is not controlled, your pain is worsening, wound has increased drainage, wound has increased redness . "Provider Documentation" section prepared by Macho Ibarra. . VTE Core Measure Inpt VTE Proph given/why not?: Other Anticoagulation, T.E.D. Stockings, SCD's
[2017-04-26 15:01] VITALS: BP 122/81; PULSE 63; TEMP 36.5; O2SAT 95
--- NOTE | 2017-04-26 17:33 | Hospitalist Progress Note ---
Hospitalist Progress Note Date of Service Apr 26, 2017. (Ning Degroot PA-C) Subjective Pt evaluation today including: conversation w/ patient, conversation w/ family , physical exam, chart review, lab review, review of studies, review of inpatient medication list Patient seen and evaluated. No acute events overnight. Utilized Tramadol with improvement in dizziness and reports good pain control but now c/o nausea without emesis. Has used Zofran but is hesitant as this caused constipation in the past. Orthostatics negative. Patient still expresses anxiety about ambulating and moving the knee. Appears euvolemic. Taking in good amount of fluids but states only eating crackers today Constitutional: No fever, No chills Respiratory: No shortness of breath Cardiovascular: No chest pain, No palpitations Abdomen: + nausea, No pain, No vomiting, No diarrhea, No constipation Musculoskeletal: + joint pain (R knee) Female : No dysuria Heme: No abnormal bleeding/bruising (Ning Degroot PA-C) Medications Current Inpatient Medications Medications (Trade) Dose Ordered Sig/Jero Route Start Time Stop Time Status Last Admin Dose Admin Morphine Sulfate (MoRPHine SULFATE INJ) 4 mg 4XDQ4H PRN IV 04/23/17 09:45 05/07/17 09:44 Acetaminophen (Tylenol Tab) 1,000 mg Q8 PO 04/23/17 14:00 05/23/17 13:59 04/26/17 14:14 1,000 MG Magnesium Hydroxide (Milk Of Magnesia Susp) 30 ml Q6H PRN PO 04/23/17 09:45 05/23/17 09:44 Docusate Sodium (coLACE CAP) 100 mg BID PO 04/23/17 21:00 05/23/17 20:59 04/26/17 08:56 100 MG Diphenhydramine HCl (Benadryl Cap) 25 mg Q8H PRN PO 04/23/17 09:45 05/23/17 09:44 Diphenhydramine HCl (Benadryl Inj) 25 mg Q8H PRN IV 04/23/17 09:45 05/23/17 09:44 Zolpidem Tartrate (Ambien Tab) 5 mg HSZ PRN PO 04/23/17 09:45 05/23/17 09:44 Multivitamins (Multivitamin Tab) 1 tab QAM PO 04/24/17 09:00 05/24/17 08:59 04/25/17 09:17 1 TAB Ondansetron HCl (Zofran Inj) 4 mg Q6H PRN IV 04/23/17 09:45 05/23/17 09:44 04/26/17 08:09 4 MG Ferrous Gluconate (Ferrous Gluconate Tab) 324 mg TIDM PO 04/23/17 12:30 05/23/17 12:29 04/25/17 18:02 324 MG Pantoprazole Sodium (Protonix Tab) 40 mg QAM PO 04/24/17 09:00 05/24/17 08:59 04/26/17 08:57 40 MG Rivaroxaban (Xarelto Tab) 10 mg Q24H PO 04/24/17 09:00 05/24/17 08:59 04/26/17 08:57 10 MG Escitalopram Oxalate (Lexapro Tab) 20 mg HS PO 04/23/17 21:00 05/23/17 20:59 04/25/17 20:56 20 MG Loratadine (Claritin Tab) 10 mg HS PO 04/23/17 21:00 05/23/17 20:59 04/25/17 20:56 10 MG Tramadol HCl (Ultram Tab) 50 mg Q4H PRN PO 04/25/17 10:30 05/25/17 10:29 04/26/17 04:36 50 MG Lorazepam (Ativan Tab) 0.5 mg Q6H PRN PO 04/25/17 12:00 05/23/17 11:59 Acetaminophen/ Hydrocodone Bitart ([place] 5/325 Tab) Please use only if Ultram... Q6HWA PRN PO 04/26/17 09:00 05/10/17 08:59 (Ning Degroot, LISA) Objective Vital Signs Date Time Temp Pulse Resp B/P (MAP) Pulse Ox O2 Delivery O2 Flow Rate FiO2 04/26/17 15:01 36.5 63 18 122/81 (95) 95 Room Air 04/26/17 08:20 97 Room Air 04/26/17 08:00 36.9 72 20 135/81 (99) 97 Room Air 04/25/17 23:50 Room Air 04/25/17 23:20 36.7 68 16 149/88 (108) 97 Room Air 04/25/17 18:05 78 137/82 (100) 04/25/17 18:05 70 136/82 (100) 04/25/17 18:05 81 115/74 (88) (Ning Degroot PA-C) Physical Exam General Appearance: WD/WN, no apparent distress Eyes: sclerae normal ENT: hearing grossly normal Neck: supple, no JVD, trachea midline Respiratory/Chest: lungs clear, normal breath sounds, no respiratory distress, no accessory muscle use Cardiovascular: regular rate, rhythm, no gallop, no murmur Abdomen: normal bowel sounds, non tender, soft Extremities: + pertinent finding (R knee with vac applied; minimal ecchymosis; neg erythema; motor function intact; sensation intact; cap refill immediate) Neurologic/Psychiatric: alert, oriented x 3 Skin: normal color, warm/dry (Ning Degroot, ANÍBALC) Laboratory Results Last 24 Hours Test 04/26/17 05:34 White Blood Count 5.68 K/uL Red Blood Count 3.19 M/uL Hemoglobin 8.7 g/dL Hematocrit 28.5 % Mean Corpuscular Volume 89.3 fL Mean Corpuscular Hemoglobin 27.3 pg Mean Corpuscular Hemoglobin Concent 30.5 g/dl RDW Standard Deviation 46.7 fL RDW Coefficient of Variation 14.1 % Platelet Count 241 K/uL Mean Platelet Volume 9.8 fL (Ning Degroot, ERIK-C) Assessment and Plan 61 y/o female, with PMHx of anxiety, obesity, and GERD, s/p R hip replacement. S/P R TKA by Dr. Rodriguez on 04/23: - Pain management, PT/OT, and DVT Prophylaxis per primary - DVT Prophylaxis - Xarelto Orthostatic Hypotension: Likely Vasovagal - Patient reporting a lot of anxiety and Valsalvas when ambulating/knee exercises - dizziness may also be affected by pain medication - Reports Tramadol helped previously with less dizziness but now reporting its causing her nausea - Appears euvolemic and is taking in oral fluids without difficulty - Similar issue with previous knee surgery and took 5 days to resolve -- Given medication to increase BP but stated she ultimately had systolic readings in 200s - cannot find what this medication would be as she wasn't D/C' d with anything but was treated with Meclizine in-hospital Anxiety: - Lexapro 20 mg daily - Ativan 0.5 mg PRN - med rec with 1 mg Q6H per patient she was given 5 pills for acute anxiety but only needed one and is not on chronically Disposition: Per Primary Thank you for this consultation. We will continue to follow throughout hospital stay. Continued [facility] stay due to: multiple IV medications needed Discharge planning: home with home health (Ning Degroot, PA-C) I agree with above note after discussing case with APC and examining patient. General Appearance: WD/WN, no apparent distress Eyes: sclerae normal ENT: hearing grossly normal Neck: supple, no JVD, trachea midline Respiratory/Chest: lungs clear, normal breath sounds, no respiratory distress, no accessory muscle use Cardiovascular: regular rate, rhythm, no gallop, no murmur Abdomen: normal bowel sounds, non tender, soft Extremities: + pertinent finding (R knee with vac applied; minimal ecchymosis; neg erythema; motor function intact; sensation intact; cap refill immediate) Neurologic/Psychiatric: alert, oriented x 3 Skin: normal color, warm/dry My exam did not differ from APC. (Umang Amato M.D.)
[2017-04-26] MEDS: LORATADINE 10 MG TAB PO SCH (22:07)
[2017-04-26] MEDS: ESCITALOPRAM OXALATE 20 MG TAB PO SCH (22:07)
[2017-04-26] MEDS ORDERED: ONDANSETRON 4 MG TAB PO PRN (23:30)
[2017-04-26] MEDS ORDERED: NURSING VERBAL MED ORDER ONE (23:30)
[2017-04-26 23:44] VITALS: BP 154/83; PULSE 74; TEMP 37.2; O2SAT 93
[2017-04-27] MEDS: TRAMADOL HCL 50 MG TAB PO PRN (00:11)
[2017-04-27] MEDS: ACETAMINOPHEN 500 MG TAB PO SCH (06:07)
[2017-04-27 06:09] LABS: HEMATOCRIT 30.4 % (37-47); MEAN CELL VOLUME 89.1 fL (80-100); MEAN CORPUSCULAR HGB CONC 30.3 g/dl (32-36); MEAN PLATELET VOLUME 9.8 fL (7.4-10.4); PLATELET COUNT 287 K/uL (130-400); RED BLOOD COUNT 3.41 M/uL (4.2-5.4); WHITE BLOOD COUNT 5.35 K/uL (4.8-10.8)
[2017-04-27 07:19] VITALS: BP 135/84; PULSE 65; TEMP 36.7; O2SAT 95
--- NOTE | 2017-04-27 07:58 | Orthopedic Progress Note ---
Orthopedic Progress Note Date of Service Apr 27, 2017. Subjective Post OP Day: 4 Reports: feeling well, pain controlled w PO medications, Denies: complaints, chest pain, SOB, nausea / vomiting, light headedness, calf pain Additional Notes: states n/v much better on tylenol and an occas tramadol. Objective calves soft nontender, N/V intact, capillary refill less than 2 sec., dressing C /D/I, A&O x3, toes mobile Prevena in tact. Date Time Temp Pulse Resp B/P (MAP) Pulse Ox O2 Delivery O2 Flow Rate FiO2 04/27/17 07:19 36.7 65 18 135/84 (101) 95 Room Air 04/26/17 23:45 Room Air 04/26/17 23:44 37.2 74 16 154/83 (106) 93 Room Air 04/26/17 15:55 Room Air 04/26/17 15:01 36.5 63 18 122/81 (95) 95 Room Air 04/26/17 08:20 97 Room Air 04/26/17 08:00 36.9 72 20 135/81 (99) 97 Room Air Laboratory Results 24 Hours: Test 04/27/17 05:31 Hematocrit 30.4 % Hemoglobin 9.2 g/dL Assessment & Plan Assessment: POD #4, Right TKA Plan: PT/ OPT DVT proph- Xarelto D/C planning- Home with home health today after lunch if N/V resolved. As per medicine. Inhouse Planning Pain Management: Oxycontin (D/C Oxycontin today.), Morphine, PO Tylenol, Oxy IR (D/C Oxy IR today) DVT Prophylaxis: TEDs, SCDs, Xarelto Discharge Planning Discharge Planning: home with home health Pain Management: Ultram, PO Tylenol DVT Prophylaxis: TEDs, Xarelto Therapy: Physical Therapy, Occupational Therapy
[2017-04-27] MEDS ORDERED: ONDA8TAB6 PO (08:05)
[2017-04-27] MEDS ORDERED: XRL10 PO (08:05)
[2017-04-27] MEDS: FERROUS GLUCONATE 324 MG TAB PO SCH ×2 (08:31→12:30)
[2017-04-27] MEDS: RIVAROXABAN 10 MG TAB PO SCH (08:32)
[2017-04-27] MEDS: MULTIVITAMIN TAB PO SCH (08:32)
[2017-04-27] MEDS: DOCUSATE SODIUM 100 MG CAP PO SCH (08:32)
[2017-04-27] MEDS: PANTOprazole SOD 40 MG TAB PO SCH (08:32)
[2017-04-27 08:54] VITALS: BP 135/84; PULSE 65; TEMP 36.7; O2SAT 95
--- NOTE | 2017-04-27 09:25 | Hospitalist Progress Note ---
Hospitalist Progress Note Date of Service Apr 27, 2017. (Alisa Pena ., PA-C) Subjective Pt evaluation today including: conversation w/ patient, physical exam, lab review, review of inpatient medication list Voiding: no voiding problems Patient states she is feeling well. Experienced some nausea 04/25-04/26. Seems to be improving. Zofran PRN. Tolerated dinner last evening and breakfast this AM. +flatus and BMs postop. Pain is well controlled with Tylenol and Tramadol. Lightheadedness/dizziness continues to improve each day. Working w/ PT- no significant difficulties. Patient denies any fever, chills, sweats, vision changes, CP, palpitations, edema, SOB, wheezing, cough, abdominal pain, vomiting, diarrhea, urinary symptoms, melena, numbness/tingling, weakness, anxiety/depression, active bleeding, or new skin discoloration/changes. (Alisa Pena ., PA-C) Medications Current Inpatient Medications Medications (Trade) Dose Ordered Sig/Jero Route Start Time Stop Time Status Last Admin Dose Admin Morphine Sulfate (MoRPHine SULFATE INJ) 4 mg 4XDQ4H PRN IV 04/23/17 09:45 05/07/17 09:44 Acetaminophen (Tylenol Tab) 1,000 mg Q8 PO 04/23/17 14:00 05/23/17 13:59 04/27/17 06:07 1,000 MG Magnesium Hydroxide (Milk Of Magnesia Susp) 30 ml Q6H PRN PO 04/23/17 09:45 05/23/17 09:44 Docusate Sodium (coLACE CAP) 100 mg BID PO 04/23/17 21:00 05/23/17 20:59 04/27/17 08:32 100 MG Diphenhydramine HCl (Benadryl Cap) 25 mg Q8H PRN PO 04/23/17 09:45 05/23/17 09:44 Diphenhydramine HCl (Benadryl Inj) 25 mg Q8H PRN IV 04/23/17 09:45 05/23/17 09:44 Zolpidem Tartrate (Ambien Tab) 5 mg HSZ PRN PO 04/23/17 09:45 05/23/17 09:44 Multivitamins (Multivitamin Tab) 1 tab QAM PO 04/24/17 09:00 05/24/17 08:59 04/27/17 08:32 1 TAB Ferrous Gluconate (Ferrous Gluconate Tab) 324 mg TIDM PO 04/23/17 12:30 05/23/17 12:29 04/27/17 08:31 324 MG Pantoprazole Sodium (Protonix Tab) 40 mg QAM PO 04/24/17 09:00 05/24/17 08:59 04/27/17 08:32 40 MG Rivaroxaban (Xarelto Tab) 10 mg Q24H PO 04/24/17 09:00 05/24/17 08:59 04/27/17 08:32 10 MG Escitalopram Oxalate (Lexapro Tab) 20 mg HS PO 04/23/17 21:00 05/23/17 20:59 04/26/17 22:07 20 MG Loratadine (Claritin Tab) 10 mg HS PO 04/23/17 21:00 05/23/17 20:59 04/26/17 22:07 10 MG Tramadol HCl (Ultram Tab) 50 mg Q4H PRN PO 04/25/17 10:30 05/25/17 10:29 04/27/17 00:11 50 MG Lorazepam (Ativan Tab) 0.5 mg Q6H PRN PO 04/25/17 12:00 05/23/17 11:59 Acetaminophen/ Hydrocodone Bitart ([place] 5/325 Tab) Please use only if Ultram... Q6HWA PRN PO 04/26/17 09:00 05/10/17 08:59 Ondansetron HCl (Zofran Tab) 4 mg Q6H PRN PO 04/26/17 23:30 05/26/17 23:29 04/27/17 06:06 4 MG (Alisa Pena PA-C) Objective Vital Signs Date Time Temp Pulse Resp B/P (MAP) Pulse Ox O2 Delivery O2 Flow Rate FiO2 04/27/17 08:54 36.7 65 18 95 Room Air 04/27/17 07:20 Room Air 04/27/17 07:19 36.7 65 18 135/84 (101) 95 Room Air 04/26/17 23:45 Room Air 04/26/17 23:44 37.2 74 16 154/83 (106) 93 Room Air 04/26/17 15:55 Room Air 04/26/17 15:01 36.5 63 18 122/81 (95) 95 Room Air (Alisa Pena PA-C) Physical Exam General Appearance: no apparent distress, + obese, + pertinent finding (drowsy ) Eyes: normal inspection, PERRL ENT: hearing grossly normal Neck: supple Respiratory/Chest: lungs clear, no respiratory distress, no accessory muscle use Cardiovascular: regular rate, rhythm Abdomen: normal bowel sounds, non tender, soft Extremities: no pedal edema, no calf tenderness, + pertinent finding (R knee w / vac in place ) Neurologic/Psychiatric: no motor/sensory deficits, alert, normal mood/affect, oriented x 3 Skin: normal color, warm/dry, no rash (Alisa Pena PA-C) Laboratory Results Last 24 Hours Test 04/27/17 05:31 White Blood Count 5.35 K/uL Red Blood Count 3.41 M/uL Hemoglobin 9.2 g/dL Hematocrit 30.4 % Mean Corpuscular Volume 89.1 fL Mean Corpuscular Hemoglobin 27.0 pg Mean Corpuscular Hemoglobin Concent 30.3 g/dl RDW Standard Deviation 45.9 fL RDW Coefficient of Variation 14.2 % Platelet Count 287 K/uL Mean Platelet Volume 9.8 fL (Alisa Pena PA-C) Assessment and Plan 61 y/o female, with PMHx of anxiety, obesity, and GERD, s/p R hip replacement. s/p R TKA by Dr. Rodriguez on 04/23: - Pain management, PT/OT, and DVT prophylaxis as per primary team - Postop CBC and PRP reviewed- STABLE - Follow H&H- Iron supplement 325 mg TID Orthostatic hypotension, likely secondary to postop losses- IMPROVING: - Limit pain medications- Tramadol and Tylenol PRN - Encouraged good oral intake - Follow H&H and BPs- STABLE - Change positions slowly Anxiety: Lexapro 20 mg daily, Ativan 0.5 q6 hrs PRN GI prophylaxis: Protonix DVT prophylaxis: Xarelto as per ortho Code Status: LEVEL I, FULL Dispo: Discharge to home w/ HHS as per primary team (Alisa Pena PA-C) chart reviewed, case d/w T Jean PAC. Agree w above. Went to see pt, was not in room, then was discharged prior to my being able to assess. agree w above (Juventino Delatorre D.O.)
[2017-04-27] MEDS ORDERED: NURSING VERBAL MED ORDER ONE (10:00)
[2017-04-27] MEDS ORDERED: METOCLOPRAMIDE HCL 10 MG TAB PO PRN ×2 (10:00→10:15)
--- NOTE | 2017-05-08 08:45 | DISCHARGE SUMMARY ---
DISCHARGE DIAGNOSIS: Degenerative joint disease, right knee. SECONDARY DIAGNOSIS: None. CONSULTS: Dr. Guajardo. COMPLICATIONS: None. PROCEDURE: The patient underwent a right total knee arthroplasty by Dr. Rodriguez on 04/23/2017. BRIEF HISTORY: Please see previously dictated history and physical. HOSPITAL SUMMARY: The patient was admitted on the above day for the above procedure. Procedure went without complication. Postop day #1, the patient was feeling well without complaints. She denied chest pain or shortness of breath. Vital signs were stable. She was afebrile. Dressing was clean, dry and intact. She was neurovascularly intact. Calves were soft and nontender. Hemoglobin was 9.0. The patient began physical therapy per protocol. She was placed on Xarelto for DVT prophylaxis. Postop day #2, the patient is complaining of feeling lightheaded when standing up. She has difficulty with PT. She had similar problems in the past with her opposite knee. Vital signs were stable. She was afebrile. Dressing was clean, dry and intact with Prevena. She was alert and oriented. Toes were mobile. Hemoglobin was 8.6. The patient began physical therapy per protocol. She continued to progress. Postop day #3, the patient was feeling slightly better. She was having some nausea with her pain medications. Her blood pressure was normal. Vital signs were otherwise stable. She was afebrile. Incision was clean, dry and intact. She was neurovascularly intact. Calves were soft and nontender. She was alert and oriented. Hemoglobin was stable at 8.7. The patient has Zofran for nausea and continued therapy. Postop day #4, the patient was feeling much better. Her nausea was resolved. Her lightheadedness was also resolved. She was taking Tylenol and tramadol for pain. Vital signs were stable. She was afebrile. Dressing was clean, dry and intact. She was neurovascularly intact. Calves were soft and nontender. Hemoglobin was 9.2. The patient continued to progress with physical therapy. She was discharged home with home health later that day in stable condition. For further review, please see the chart. Lab, x-ray data and discharge instructions as per chart. [facility]
== END 2017-04-27 14:00 | disposition home health service (06) | DRG 470 ==
LOC: C.ACU 05:21 → C.3E 07:00 → ENRESERV 10:07
PROVIDERS: ADMIT Orthopaedic Surgery Sports Medicine; ATTEND Orthopaedic Surgery Sports Medicine
PROC: 0SRC0J9 Replacement of Right Knee Joint with Synthetic Substitute, Cemented, Open Approach (ICD-10-PCS; principal; 2017-04-23 07:15)
DX: M17.11 Unilateral primary osteoarthritis, right knee (principal); E66.2 Morbid (severe) obesity with alveolar hypoventilation; Z68.41 Body mass index [BMI] 40.0-44.9, adult; F41.9 Anxiety disorder, unspecified; K21.9 Gastro-esophageal reflux disease without esophagitis; I95.1 Orthostatic hypotension